=== PATIENT | female | born 1980 | race Caucasian/White ===

== ENCOUNTER 2017-08-08 21:14 | Emergency (ER) | payer OTHER, SELFPAY ==
[2017-08-08 21:22] VITALS: BP 135/99; PULSE 89; RESP 18; TEMP 36.4; O2SAT 100; BMI 34.5
--- NOTE | 2017-08-08 21:31 | ED_ITS ---
HPI - Extremity Problem <Kallie Lainez PA-C - Last Filed: 08/08/17 22:09> General Chief complaint: Skin/Abscess/Foreign Body Stated complaint: Right foot pain Time Seen by Provider: 08/08/17 21:16 Source: patient Mode of arrival: ambulatory Limitations: no limitations History of Present Illness HPI Narrative: This 37-year-old female comes in due to right foot pain and redness. She states that she tends not to heal very well, and somehow got a superficial abrasion last night that she noticed on her toe this morning. She has had redness that spread from the toe up onto the foot since then and is becoming increasingly tender. She denies any fever, drainage, or known injury. She states her tetanus vaccine is up-to-date. She denies any possibility of ( has vasectomy) Related Data Home Medications Medication Instructions Recorded Confirmed paroxetine HCl [Paxil] 40 mg PO QDAY #0 10/04/15 08/08/17 clonazepam [Klonopin] 1 mg PO PRN PRN #0 04/21/17 08/08/17 Previous Rx's Medication Instructions Recorded meclizine 25 mg PO BID PRN #20 tab 04/21/17 doxycycline monohydrate 100 mg PO BID 10 Days #20 cap 08/08/17 Allergies Allergy/AdvReac Type Severity Reaction Status Date / Time Sulfa (Sulfonamide Allergy Intermediate Verified 08/08/17 21:27 Antibiotics) [SULFA (SULFONAMIDE ANTIBIOTICS)] amoxicillin [AMOXICILLIN] Allergy Mild Verified 08/08/17 21:27 Review of Systems <SUMIT Maynard Last Filed: 08/08/17 22:09> Review of Systems All systems reviewed & are unremarkable except as noted in HPI and below Exam <SMUIT Maynard Last Filed: 08/08/17 22:09> Narrative Exam Narrative: GENERAL APPEARANCE: Patient sitting comfortably, in no distress. LUNGS: Clear to auscultation bilaterally. HEART: Rate and rhythm regular without murmur, normal S1 and S2, no S3 or S4. EXTR: No cyanosis or edema DERMATOLOGIC: On the R. great toe dorsum there is a superficial scabbed abrasion with surrounding, mildly warm erythema that extends from the 1st IP joint to the proximal medial 1st and 2nd MT area. Does not extend laterally or to the plantar surface. Tender to touch MS: R. foot and ankle full AROM Initial Vital Signs Initial Vital Signs: Vital Signs Temperature 97.5 F L 08/08/17 21:22 Pulse Rate 89 08/08/17 21:22 Respiratory Rate 18 08/08/17 21:22 Blood Pressure 135/99 H 08/08/17 21:22 Pulse Oximetry 100 08/08/17 21:22 <Shiv Wolfe DO - Last Filed: 08/08/17 22:47> Initial Vital Signs Initial Vital Signs: Vital Signs Temperature 97.5 F L 08/08/17 21:22 Pulse Rate 89 08/08/17 21:22 Respiratory Rate 18 08/08/17 21:22 Blood Pressure 135/99 H 08/08/17 21:22 Pulse Oximetry 100 08/08/17 21:22 Course <Kallie Lainez PA-C - Last Filed: 08/08/17 22:09> Orders Ordered: Discontinued Medications Doxycycline Hyclate (Vibramycin) 100 mg PO NOW ONE Stop: 08/08/17 21:26 Last Admin: 08/08/17 21:32 Dose: 100 mg Ibuprofen (Advil) 800 mg PO NOW ONE Stop: 08/08/17 21:26 Last Admin: 08/08/17 21:32 Dose: 800 mg Vital Signs - 8 hr 08/08/17 21:22 08/08/17 21:57 Temperature 97.5 F L Pulse Rate 89 93 H Respiratory Rate 18 16 Blood Pressure 135/99 H Blood Pressure [Left Arm] 123/86 H Pulse Oximetry 100 96 <Shiv Wolfe DO - Last Filed: 08/08/17 22:47> Orders Ordered: Discontinued Medications Doxycycline Hyclate (Vibramycin) 100 mg PO NOW ONE Stop: 08/08/17 21:26 Last Admin: 08/08/17 21:32 Dose: 100 mg Ibuprofen (Advil) 800 mg PO NOW ONE Stop: 08/08/17 21:26 Last Admin: 08/08/17 21:32 Dose: 800 mg Vital Signs - 8 hr 08/08/17 21:22 08/08/17 21:57 Temperature 97.5 F L Pulse Rate 89 93 H Respiratory Rate 18 16 Blood Pressure 135/99 H Blood Pressure [Left Arm] 123/86 H Pulse Oximetry 100 96 Discharge Plan Departure Patient Disposition: Home, Self-Care Clinical Impression: Cellulitis and abscess of foot Discharge Date/Time: 08/08/17 22:00 Interventions: ED Discharge Assessment Last Done: 08/08/17 22:01 Instructions: DI for Cellulitis -- Adult Activity Restrictions/Additional Instructions: Return as we talked about if you have acutely worsening symptoms over the weekend, otherwise picker / packer your antibiotic tomorrow morning and take the 2nd dose. This has been electronically sent to your pharmacy. Follow up with your PCP in 48-72 hours for recheck Prescriptions: New doxycycline monohydrate 100 mg capsule 100 mg PO BID 10 Days Qty: 20 RF: 0 No Action paroxetine HCl [Paxil] 40 MG tablet 40 mg PO QDAY Qty: 0 RF: 0 clonazepam [Klonopin] 1 mg Tablet 1 mg PO PRN PRN (Reason: Agitation) Qty: 0 RF: 0 meclizine 25 MG tablet 25 mg PO BID PRNQty: 20 RF: 0 Referrals: Fátima Ogden DO [Non-Staff] - <Shiv Wolfe DO - Last Filed: 08/08/17 22:47> Cosign ED Attending Helderature Attestation: I was available for consultation during this ER stay
[2017-08-08] MEDS: DOXYCYCLINE HYCLATE 100 MG TABLET PO (21:32)
[2017-08-08] MEDS: IBUPROFEN 400 MG TABLET 800 MG PO (21:32)
--- NOTE | 2017-08-08 21:37 | PC.NURSE ---
Pt states right foot pain since this am unsure of origin states hx of cellulitis, top of foot appears to be red, swollen and has small abrasion. Pedal pulse present and pt able to bear weight ambulated to er room.
[2017-08-08 21:57] VITALS: BP 123/86; PULSE 93; RESP 16; O2SAT 96
== END 2017-08-08 22:00 | disposition home or self-care (01) ==
PROVIDERS: Emergency Provider Internal Medicine
DX: L03.115 Cellulitis of right lower limb (principal)
CPT/HCPCS: 99282; 99283

== ENCOUNTER 2018-06-05 22:23 | Emergency (ER) | payer OTHER, SELFPAY ==
[2018-06-05 22:30] VITALS: BP 133/94; PULSE 98; RESP 15; TEMP 36.6; O2SAT 100; BMI 32.3
--- NOTE | 2018-06-05 23:15 | DI.US.S_ITS ---
PROCEDURE: US PERIPH VENOUS LOW EXTREM LT INDICATIONS: PAIN, SWELLING TECHNIQUE: Real-time imaging, as well as color and pulse Doppler interrogation, were performed of the lower extremity deep veins from the inguinal ligament to the popliteal fossa. COMPARISON: None. FINDINGS: The common femoral, femoral and popliteal veins are normally compressible, and free of intraluminal thrombus. Color and pulse Doppler demonstrate normal phasic intraluminal flow. There is normal augmentation response to distal compression maneuver. IMPRESSION: No evidence of deep venous thrombosis. Dictated by: Emil Mofrin M.D. on 06/06/2018 at 8:30 Approved by: Emil Morfin M.D. on 06/06/2018 at 8:30
[2018-06-05] MEDS: KETOROLAC 60 MG/2 ML VIAL IM (23:16)
--- NOTE | 2018-06-05 23:24 | ED_ITS ---
HPI - Extremity Problem General Chief complaint: Extremity Problem,Nontraumatic Stated complaint: PELVIS,HIP/PAIN Time Seen by Provider: 06/05/18 22:53 Source: patient Mode of arrival: ambulatory Limitations: no limitations History of Present Illness HPI Narrative: The patient is a 37-year-old female who presents with left inguinal ligament pain. She says it is throbbing often on her last couple days she says it is deep. She rode home from [place] today she feels like it is worse. She has not taken anything for it. She sometimes feels like her leg is cold. She has no calf pain she does get winded while she was going up 5 flights of stairs but not typically or min minimal exertion. She has no chest pain no history of DVT. She denies any back pain. She says actually the pain started behind her knee and now is up on anterior in her groin area. No recent traveling MD Complaint: extremity pain Location: left Quality: burning Radiation: proximal Related Data Home Medications Medication Instructions Recorded Confirmed paroxetine HCl [Paxil] 40 mg PO QDAY #0 10/04/15 08/08/17 clonazepam [Klonopin] 1 mg PO PRN PRN #0 04/21/17 08/08/17 Previous Rx's Medication Instructions Recorded meclizine 25 mg PO BID PRN #20 tab 04/21/17 Allergies Allergy/AdvReac Type Severity Reaction Status Date / Time Sulfa (Sulfonamide Allergy Intermediate Verified 08/08/17 21:27 Antibiotics) [SULFA (SULFONAMIDE ANTIBIOTICS)] amoxicillin [AMOXICILLIN] Allergy Mild Verified 08/08/17 21:27 Review of Systems Review of Systems ROS Unobtainable: All systems reviewed & are unremarkable except as noted in HPI and below Constitutional Denies chills, Denies fever(s), Denies lethargy and Denies weakness Eyes Denies change in vision, Denies eye discharge, Denies irritation and Denies loss of vision ENT Ears, Nose, Mouth, and Throat: Denies change in voice, Denies neck pain and Denies sore throat Cardiovascular Denies chest pain, Denies irregular heart rhythm, Denies lightheadedness, Denies palpitations, Denies dyspnea, Denies dyspnea on exertion and Denies orthopnea Respiratory Denies cough, Denies dyspnea, Denies dyspnea on exertion and Denies wheezing Gastrointestinal Gastrointestinal: Denies abdominal pain, Denies change in bowel habits, Denies diarrhea, Denies nausea and Denies vomiting Genitourinary Denies hematuria, Denies flank pain, Denies urinary incontinence and Denies urinary urgency Musculoskeletal Reports as per HPI and Denies neck pain Integumentary/Breasts Denies pruritus, Denies erythema, Denies rash and Denies wounds Neurologic Denies loss of vision and Denies weakness Endocrine Denies palpitations Allergic/Immunologic Denies wheezing [facility] Medical History (Updated 06/05/18 @ 23:55 by Mahsa Skaggs DO) Anxiety (Chronic) Surgical History (Updated 08/08/17 @ 21:39 by Kallie Lainez PA-C) History of repair of anterior cruciate ligament of right knee (Resolved) Social History Smoking Status: Never smoker Social History Smoking Status: Never smoker Exam Initial Vital Signs Initial Vital Signs: Vital Signs Temperature 98 F 06/05/18 22:30 Pulse Rate 98 H 06/05/18 22:30 Respiratory Rate 15 06/05/18 22:30 Blood Pressure 133/94 H 06/05/18 22:30 Pulse Oximetry 100 06/05/18 22:30 GENERAL: Well-appearing, well-nourished and in no acute distress. HEENT: Head atraumatic,EOMI, pupils reactive, face symmetric CARDIOVASCULAR: Regular rate and rhythm without murmurs, rubs or gallops. RESPIRATORY: Breath sounds equal bilaterally, no wheezes rales or rhonchi. ABDOMEN: Soft, nontender. Normoactive bowel sounds all 4 quadrants. No guarding or rebound. EXTREMITIES: Normal range of motion, no clubbing or edema. Neurovascularly intact Pain over left inguinal ligament. No pain with left hip with internal external rotation. No swelling of the lower leg no calf pain distal pedal pulse and NEUROLOGICAL: Alert and oriented x4.Normal gait and speech. SKIN: Warm, dry, no laceration, no petechiae, no rashes or lesions. Course Orders Ordered: ED Orders 06/05/18 23:15 periph venous low extrem lt Stat Discontinued Medications Ketorolac Tromethamine (Toradol) 60 mg IM NOW ONE Stop: 06/05/18 23:08 Last Admin: 06/05/18 23:16 Dose: 60 mg Vital Signs - 8 hr 06/05/18 22:30 06/06/18 00:05 Temperature 98 F 98.1 F Pulse Rate 98 H 90 Respiratory Rate 15 16 Blood Pressure 133/94 H 127/85 Pulse Oximetry 100 100 MDM - Extremity (Nontraumatic) Lab Data Point of Care Testing Test Results Negative Urine Dip Bedside Urine Glucose Negative Bedside Urine Bilirubin - Negative Bedside Urine Ketone - Negative Urine Specific [place] 1.020 Bedside Urine Occult Blood +/- Bedside Urine pH 6.0 Bedside Urine Protein - Negative Bedside Urine Urobilinogen - Negative Bedside Urine Nitrite - Negative Bedside Urine Leukocytes - Negative Esterase Imaging Data Venous US: Radiologist's impression: weight shifter report: Negative for DVT MDM Narrative Medical decision making narrative: Patient's pain started behind her knee and now she is having pain up in her upper thigh. Possible DVT. Ultrasound is negative. Patient really does seem to have pain and inflammation over inguinal ligament she has no flank pain. She does have a small amount of blood in her urine we discussed possible kidney stone however at this time she will likely pass it there is no infection. Commended ibuprofen around the clock for the next couple of days. She overall is feeling little bit better after Toradol. Discharge Plan Departure Patient Disposition: Home Clinical Impression: Ligamentous inflammation Discharge Date/Time: 06/06/18 00:05 Interventions: ED Discharge Assessment Last Done: 06/06/18 00:05 Instructions: DI for Ligament Sprains Activity Restrictions/Additional Instructions: *You have been diagnosed with possible left inguinal ligament sprain versus possible kidney stone. *What to do: He did have some small amount of blood in her urine which may indicate a kidney stone. However at this time I suspect that the inguinal ligament is inflamed. *Continue to take medications as directed Ibuprofen 800 mg every 8 hours as for 1 week with food to help with inflammation *Follow up with your primary care provider in 2-3 days *Return to ER if you should have increasing pain, fever or any new, worsening or concerning symptoms Prescriptions: No Action paroxetine HCl [Paxil] 40 MG tablet 40 mg PO QDAY Qty: 0 RF: 0 clonazepam [Klonopin] 1 mg Tablet 1 mg PO PRN PRN (Reason: Agitation) Qty: 0 RF: 0 meclizine 25 MG tablet 25 mg PO BID PRNQty: 20 RF: 0 Referrals: Fátima Ogden DO [Primary Care Provider] -
[2018-06-06 00:05] VITALS: BP 127/85; PULSE 90; RESP 16; TEMP 36.7; O2SAT 100
== END 2018-06-06 00:05 | disposition home or self-care (01) ==
PROVIDERS: Emergency Provider Emergency Medicine; PCP Family Medicine
DX: M24.20 Disorder of ligament, unspecified site (principal); M79.652 Pain in left thigh; M25.562 Pain in left knee
CPT/HCPCS: 81003; 81025; 93971; 96372; 99282; 99283; J1885

== ENCOUNTER 2019-02-09 08:09 | Emergency (ER) | payer OTHER, SELFPAY ==
[2019-02-09 08:16] VITALS: BP 136/92; PULSE 80; RESP 15; TEMP 36.8; O2SAT 99; BMI 32.3
--- NOTE | 2019-02-09 08:27 | ED.EXTPRO ---
HPI - Extremity Problem General Chief complaint: Extremity Problem,Nontraumatic Stated complaint: right arm elbown down numb and tingle,headache Time Seen by Provider: 02/09/19 08:15 Source: patient Mode of arrival: Ambulatory History of Present Illness HPI Narrative: Patient is a 38-year-old female who presents with right arm numbness from her elbow to her fingertips. It's been ongoing for last 2 days. She is right-hand dominant she denies any repetitive activity although she has been caring lifting a heavy bag. She hasn't had any fever chills headache or neck pain. She has no weakness in her hand. No elbow pain. Related Data Home Medications Medication Instructions Recorded Confirmed paroxetine HCl [Paxil] 40 mg PO QDAY #0 10/04/15 08/08/17 clonazepam [Klonopin] 1 mg PO PRN PRN #0 04/21/17 08/08/17 Previous Rx's Medication Instructions Recorded meclizine 25 mg PO BID PRN #20 tab 04/21/17 prednisone 20 mg PO DAILY #5 tab 02/09/19 Allergies Allergy/AdvReac Type Severity Reaction Status Date / Time Sulfa (Sulfonamide Allergy Intermediate Verified 02/09/19 08:16 Antibiotics) [SULFA (SULFONAMIDE ANTIBIOTICS)] amoxicillin [AMOXICILLIN] Allergy Mild Verified 02/09/19 08:16 Review of Systems Review of Systems Narrative: GENERAL: Denies chills, fatigue, malaise, fever, sweats, travel HEENT: Denies sinus pain, ear pain, sore throat, difficulty swallowing, neck pain RESPIRATORY: Denies dyspnea, cough, wheezing, hemoptysis, sputum. CARDIOVASCULAR: Denies chest pain, palpitations, orthopnea, edema GASTROINTESTINAL: Denies nausea, vomiting, abdominal pain, diarrhea, constipation, melena. : Denies dysuria, frequency, incontinence, hematuria, urinary retention, flank pain. MUSCULOSKELETAL: Denies weakness, joint pain, or bony pain SKIN: No rash, no erythema, no pruritus NEUROLOGIC: See HPI PSYCHIATRIC: No concerning psychosocial issues. 12 point review of systems is negative except for those stated above and HPI Patient History Medical History Anxiety (Chronic) Surgical History History of repair of anterior cruciate ligament of right knee (Resolved) Social History Smoking Status: Never smoker Smoking Status: Never smoker alcohol intake frequency: holidays/special occasions only Substance Use Type: does not use Exam Initial Vital Signs Initial Vital Signs: Vital Signs Temperature 98.3 F 02/09/19 08:16 Pulse Rate 80 02/09/19 08:16 Respiratory Rate 15 02/09/19 08:16 Blood Pressure 136/92 H 02/09/19 08:16 Pulse Oximetry 99 02/09/19 08:16 GENERAL: Well-appearing, well-nourished and in no acute distress. CARDIOVASCULAR: peripheral pulses in tact, cap refill <2 sec RESPIRATORY: No respiratory distress, speaks in full sentences without difficulty EXTREMITIES: Normal range of motion, no clubbing or edema. Neurovascularly intact Fourth Hand strength equal bilateral. Peripheral pulses intact. Slight decreased sensation on right forearm sensation over bilateral deltoids are equal and intact. Good strength with supination and pronation with right arm. NEUROLOGICAL: Cranial nerves II through XII grossly intact. Normal gait and speech. SKIN: Warm, dry, no petechiae, no rashes or lesions. Course Vital Signs Vital signs: Vital Signs - 8 hr 02/09/19 08:16 02/09/19 09:03 Temperature 98.3 F Pulse Rate 80 73 Respiratory Rate 15 16 Blood Pressure 136/92 H 107/75 Pulse Oximetry 99 97 MDM - Extremity (Nontraumatic) MDM Narrative Medical decision making narrative: Patient has no weakness no other focal deficits some mild numbness from elbow down and not consistent with CVA. Likely peripheral neuropathy recommend follow-up with PCP. Discharge Plan Departure Patient Disposition: Home Clinical Impression: Peripheral neuropathy Qualifiers: Peripheral neuropathy type: polyneuropathy, unspecified Qualified Code(s): G62.9 - Polyneuropathy, unspecified Discharge Date/Time: 02/09/19 09:04 Instructions: DI for Peripheral Neuropathy Activity Restrictions/Additional Instructions: *You have been diagnosed with peripheral neuropathy *What to do: At this time you have likely nerve inflammation causing some numbness. You may require further testing as an outpatient with her PCP. *Continue to take medications as directed Prednisone 20 mg once a day for 5 days--> SENT TO [facility] IN [place] *Follow up with your primary care provider in 2-3 days *Return to ER if you should have increasing weakness, numbness tingling or any new, worsening or concerning symptoms Prescriptions: New prednisone 20 mg tablet 20 mg PO DAILY Qty: 5 RF: 0 No Action paroxetine HCl [Paxil] 40 MG tablet 40 mg PO QDAY Qty: 0 RF: 0 clonazepam [Klonopin] 1 mg Tablet 1 mg PO PRN PRN (Reason: Agitation) Qty: 0 RF: 0 meclizine 25 MG tablet 25 mg PO BID PRNQty: 20 RF: 0 Referrals: Fátima Ogden DO [Primary Care Provider] -
[2019-02-09 09:03] VITALS: BP 107/75; PULSE 73; RESP 16; O2SAT 97
== END 2019-02-09 09:04 | disposition home or self-care (01) ==
PROVIDERS: Emergency Provider Emergency Medicine; PCP Family Medicine
DX: G62.9 Polyneuropathy, unspecified (principal)
CPT/HCPCS: 99283

== ENCOUNTER 2019-02-23 07:48 | Emergency (ER) | payer OTHER, SELFPAY ==
[2019-02-23 07:57] VITALS: BP 134/94; PULSE 96; RESP 18; TEMP 37.1; O2SAT 100; BMI 32.3
--- NOTE | 2019-02-23 08:19 | ED_ITS ---
HPI - URI/Sore Throat General Chief Complaint: Upper Respiratory Symptoms Stated Complaint: body aches,fever,sinus ache Time Seen by Provider: 02/23/19 07:58 Source: patient Mode of arrival: Ambulatory Limitations: no limitations History of Present Illness HPI Narrative: Patient comes emergency department complaining of fever, intermittent sore throat, right ear pain, and right maxillary pain for the last several days. Patient states her temperature at home was up to 103 and that she was having fevers for the last 2 days. She states she does not currently fever. Patient states her last use of ibuprofen was yesterday. She has not had any Tylenol this morning. Patient states that she has not had any nausea or vomiting. She states that she does have pain in her abdomen which feels like a soreness. She denies any diarrhea. She states she has a history of recurrent otitis media and has tympanostomy tubes in her ears. She states she is otherwise fairly healthy. No known sick contacts. No other complaints at this time. Related Data Home Medications Medication Instructions Recorded Confirmed paroxetine HCl [Paxil] 40 mg PO QDAY #0 10/04/15 08/08/17 clonazepam [Klonopin] 1 mg PO PRN PRN #0 04/21/17 08/08/17 Previous Rx's Medication Instructions Recorded meclizine 25 mg PO BID PRN #20 tab 04/21/17 prednisone 20 mg PO DAILY #5 tab 02/09/19 doxycycline hyclate 100 mg PO BID #14 cap 02/23/19 Allergies Allergy/AdvReac Type Severity Reaction Status Date / Time Sulfa (Sulfonamide Allergy Intermediate Verified 02/09/19 08:16 Antibiotics) [SULFA (SULFONAMIDE ANTIBIOTICS)] amoxicillin [AMOXICILLIN] Allergy Mild Verified 02/09/19 08:16 Review of Systems Constitutional Constitutional: Denies chills, Denies fatigue, Denies fever(s), Denies frequent falls, Denies lethargy and Denies weakness Eyes Eyes: Denies change in vision, Denies eye discharge, Denies irritation and D enies loss of vision ENT Ears, Nose, Mouth, and Throat: Denies change in voice, Denies dizziness, Denies neck pain, Reports sore throat and Denies throat swelling Comments: Sinus pain, ear pain Cardiovascular Cardiovascular: Denies chest pain, Denies irregular heart rhythm, Denies lightheadedness, Denies palpitations, Denies dyspnea, Denies dyspnea on exertion and Denies orthopnea Respiratory Respiratory: Reports cough, Denies dyspnea, Denies dyspnea on exertion and Denies wheezing Gastrointestinal Gastrointestinal: Reports abdominal pain, Denies change in bowel habits, Denies diarrhea, Denies nausea and Denies vomiting Genitourinary Genitourinary: Denies hematuria, Denies flank pain, Denies urinary incontinence and Denies urinary urgency Musculoskeletal Musculoskeletal: Denies back pain, Denies muscle weakness, Denies neck pain, Denies numbness and Denies tingling Integumentary/Breasts Skin/Breast: Denies pruritus, Denies erythema, Denies rash and Denies wounds Neurologic Neurologic: Denies behavioral changes, Denies confusion, Denies dizziness, Denies frequent falls, Denies loss of vision, Denies numbness, Denies tingling and Denies weakness Psychiatric Psychiatric: Denies anxiety, Denies behavioral changes, Denies confusion, Denies depression, Denies homicidal ideation and Denies suicidal ideation Endocrine Endocrine: Denies fatigue, Denies flushing and Denies palpitations Hematologic/Lymphatic Hematologic/Lymphatic: Denies easy bruising Allergic/Immunologic Allergic/Immunologic: Denies urticaria, Denies throat swelling and Denies wheezing Patient History Medical History Anxiety (Chronic) Surgical History History of repair of anterior cruciate ligament of right knee (Resolved) Social History Smoking Status: Never smoker Smoking Status: Never smoker alcohol intake frequency: holidays/special occasions only Substance Use Type: does not use Exam Initial Vital Signs Initial Vital Signs: Vital Signs Temperature 98.8 F 02/23/19 07:57 Pulse Rate 96 H 02/23/19 07:57 Respiratory Rate 18 02/23/19 07:57 Blood Pressure 134/94 H 02/23/19 07:57 Pulse Oximetry 100 02/23/19 07:57 Const General: cooperative and well developed Nutritional Appearance: well nourished Orientation: alert, awake, oriented x3 and not confused HENMT Head: normocephalic and atraumatic Ears: external ears normal and TM's normal bilaterally (Tympanostomy tube in place on the right) Nose: external nose normal and No nasal discharge Face and sinus: sinuses nontender, face symmetric, sinus tenderness (Mild, right) maxillary and No dry mucous membranes Mouth: oral mucosae normal and moist mucous membranes Teeth and gingiva: dentition normal Throat: tonsils normal and uvula midline Eyes General: appearance normal, both eyes and all related structures Eyelids: eyelids normal Conjunctivae: conjunctivae normal Sclera: sclerae normal Pupils: PERRL EOM: EOM intact bilaterally Neck Neck: normal visual inspection, trachea midline, No lymphadenopathy, No midline deformity and No JVD Lymphatic: No lymphedema Chest Chest: normal inspection of the chest Resp Effort & Inspection: normal respiratory effort, able to speak in complete sentences, no respiratory distress and no use of accessory muscles Auscultation: clear to auscultation bilaterally, no rales, no rhonchi and no wheezes Cardio Rate: regular rate Rhythm: regular rhythm Heart Sounds: no click, no gallops, no murmurs and no rubs Pulses: normal peripheral pulses GI Inspection: non-distended Palpation: soft, no hepatosplenomegaly, No guarding, No pulsatile mass and No tender Back/Spine/Pelvis Back: No CVA tenderness Cervical Spine: cervical ROM normal and No pain with cervical ROM Thoracic/Lumbar Spine: thoracic and lumbar spine normal to inspection Skin General: no rashes or lesions noted, No jaundice and No petechiae Neuro General: alert, oriented x3, gait normal and no focal motor deficits Speech: speech normal Extrem General: full ROM, no clubbing, cyanosis or edema, no pedal edema and no calf tenderness Psych Appearance: well kempt Mental Status: mental status grossly normal Attitude: cooperative Thought Content: normal and suicidality Judgment: judgment good Course Course Course Narrative: Patient was worked up with strep and influenza tests, and t reated symptomatically with IV fluids, Toradol, and steroids. Patient's workup was found to be negative. I discussed with her that she most likely has 1 of the many viral illnesses that are going around at this time, and that this will be self-limited. We've discussed home management of the symptoms, as well as the usual indications for return. Orders Ordered: Discontinued Medications Dexamethasone (Decadron) 10 mg IV NOW ONE Stop: 02/23/19 08:19 Last Admin: 02/23/19 08:50 Dose: 10 mg Documented by: SENG Doxycycline Hyclate (Vibramycin) 100 mg PO NOW ONE Stop: 02/23/19 09:30 Last Admin: 02/23/19 09:42 Dose: 100 mg Documented by: SENG Sodium Chloride (Normal Saline 0.9%) 1,000 mls @ 1,000 mls/hr IV BOLUS ONE Stop: 02/23/19 09:17 Last Infusion: 02/23/19 10:16 Dose: 0 mls/hr Documented by: Admin: 02/23/19 08:50 Dose: 1,000 mls/hr Documented by: SENG Ketorolac Tromethamine (Toradol) 30 mg IV NOW ONE Stop: 02/23/19 08:19 Last Admin: 02/23/19 08:50 Dose: 30 mg Documented by: SENG Vital Signs Vital signs: Vital Signs - 8 hr 02/23/19 07:57 Temperature 98.8 F Pulse Rate 96 H Respiratory Rate 18 Blood Pressure 134/94 H Pulse Oximetry 100 MDM - URI/Sore Throat Medical Records Attestation: I reviewed the patient's medical records. Lab Data Attestation: I reviewed the patient's lab results. Labs: Lab Results 02/23/19 02/23/19 Range/Units 08:30 08:45 Influenza A (RT-PCR) Flu a negative (NEGATIVE) Influenza B (RT-PCR) Flu b negative (NEGATIVE) Group A Strep (PCR) Negative Discharge Plan Departure Patient Disposition: Home Clinical Impression: Sinusitis Qualifiers: Sinusitis location: maxillary Chronicity: acute Recurrence: non-recurrent Qualified Code(s): J01.00 - Acute maxillary sinusitis, unspecified Upper respiratory infection Qualifiers: URI type: unspecified viral URI Qualified Code(s): J06.9 - Acute upper respiratory infection, unspecified Acute otalgia Qualifiers: Laterality: right Qualified Code(s): H92.01 - Otalgia, right ear Discharge Date/Time: 02/23/19 10:17 Instructions: DI for Sinusitis, DI for Viral Upper Respiratory Infection -- Adult, DI for Ear Pain-Adult Activity Restrictions/Additional Instructions: Your influenza and strep tests are negative. Most likely, you have one of the many viruses that go around this time of year, as well as a sinus infection, considering your sinus pain and fever. You may take Tylenol and ibuprofen, as needed for pain and fever. You have been started on antibiotics here in the emergency department for her sinus. Please take the antibiotics at home, as directed, until the course is complete. Prescriptions: New doxycycline hyclate 100 mg capsule 100 mg PO BID Qty: 14 RF: 0 No Action paroxetine HCl [Paxil] 40 MG tablet 40 mg PO QDAY Qty: 0 RF: 0 clonazepam [Klonopin] 1 mg Tablet 1 mg PO PRN PRN (Reason: Agitation) Qty: 0 RF: 0 meclizine 25 MG tablet 25 mg PO BID PRNQty: 20 RF: 0 prednisone 20 mg tablet 20 mg PO DAILY Qty: 5 RF: 0 Referrals: Fátima Ogden DO [Primary Care Provider] -
[2019-02-23] MEDS: SODIUM CHLORIDE 0.9% 1,000 ML 1000 ML IV (08:50)
[2019-02-23] MEDS: KETOROLAC 60 MG/2 ML VIAL 30 MG IV (08:50)
[2019-02-23] MEDS: DEXAMETHASONE 10 MG/ML VIAL IV (08:50)
[2019-02-23 09:11] LABS: Strep Grp A by PCR Rapid Negative
[2019-02-23 09:13] LABS: Influenza A - CEPHEID Flu A NEGATIVE (NEGATIVE); Influenza B - CEPHEID Flu B NEGATIVE (NEGATIVE)
[2019-02-23] MEDS: DOXYCYCLINE HYCLATE 100 MG TABLET PO (09:42)
[2019-02-23 10:17] VITALS: BP 116/87; PULSE 86; RESP 16; TEMP 37.1; O2SAT 100
== END 2019-02-23 10:17 | disposition home or self-care (01) ==
PROVIDERS: Emergency Provider Emergency Medicine; PCP Family Medicine
DX: J01.00 Acute maxillary sinusitis, unspecified (principal); J06.9 Acute upper respiratory infection, unspecified; H92.01 Otalgia, right ear
CPT/HCPCS: 87502; 87651; 96361; 96374; 96375; 99283; 99284; J1100; J1885

== ENCOUNTER → 2019-12-21 17:03 | Outpatient (CLI) | payer OTHER, SELFPAY ==
--- NOTE | 2019-12-21 | DI.MG.S_ITS ---
BILATERAL DIGITAL SCREENING MAMMOGRAM 3D/2D WITH CAD: 12/21/2019 CLINICAL: Routine screening. Baseline exam. No prior exams were available for comparison. There are scattered fibroglandular elements in both breasts. Current study was also evaluated with a Computer Aided Detection (CAD) system. There is an oval equal density focal asymmetry with an indistinct margin in the left breast at 2 o'clock posterior depth. No other significant masses, calcifications, or other findings are seen in either breast. IMPRESSION: INCOMPLETE: NEEDS ADDITIONAL IMAGING EVALUATION The oval equal density focal asymmetry in the left breast is indeterminate. Mediolateral and spot compression views as well as additional views with possible ultrasound are recommended. This exam was interpreted at Station ID: [id number]. NOTE: For mammograms, a report in lay terms will be sent to the patient. Approximately 15% of breast malignancies will not be visualized mammographically. In the management of a palpable breast mass, a negative mammogram must not discourage biopsy of a clinically suspicious lesion. Electronically Signed By: Dell sharma/tyrell:12/22/2019 08:07:42 letter sent: Additional Imaging Needed ACR BI-RADS Category 0: Incomplete [id number]
== END ==
PROVIDERS: PCP Family Medicine; Referring Provider Family Medicine; Visit Provider Family Medicine
DX: Z12.31 Encounter for screening mammogram for malignant neoplasm of breast (principal)
CPT/HCPCS: 77063; 77067

== ENCOUNTER → 2020-01-14 12:50 | Outpatient (CLI) | payer OTHER, SELFPAY ==
--- NOTE | 2020-01-14 | DI.MG.S_ITS ---
UNILATERAL LEFT DIGITAL DIAGNOSTIC MAMMOGRAM 3D/2D WITH ADDITIONAL VIEWS: 01/14/2020 CLINICAL: Additional evaluation requested from prior study. [facility] There are scattered fibroglandular elements in left breast. There is a focal asymmetry in the left breast at 2 o'clock posterior depth. No other significant masses or calcifications are seen in the breast. IMPRESSION: INCOMPLETE: NEEDS ADDITIONAL IMAGING EVALUATION The focal asymmetry in the left breast likely represents fibroglandular tissue but is indeterminate. A targeted ultrasound of the left breast is recommended and will be performed immediately following this exam. This exam was interpreted at Station ID: [id number]. NOTE: For mammograms, a report in lay terms will be sent to the patient. Approximately 15% of breast malignancies will not be visualized mammographically. In the management of a palpable breast mass, a negative mammogram must not discourage biopsy of a clinically suspicious lesion. Electronically Signed By: Rylee Bobo M.D. lk/:01/14/2020 13:13:57 ACR BI-RADS Category 0: Incomplete [id number]
--- NOTE | 2020-01-14 | DI.US.S_ITS ---
ULTRASOUND OF LEFT BREAST: 01/14/2020 CLINICAL: Patient returns today to evaluate a focal asymmetry in the left breast. Comparison is made to exams dated: 01/14/2020 mammogram and 12/21/2019 mammogram - [facility]. Ultrasound of the left breast was performed on the area of interest. Dhaliwal scale images of the real-time examination were reviewed. There are multiple scattered simple cysts in the left breast superior lateral quadrant middle depth. Some of these cysts demonstrate internal avascular septations. No suspicious sonographic findings. IMPRESSION: BENIGN There is no sonographic evidence of malignancy. The multiple simple cysts in the left breast are benign. A 1 year screening mammogram is recommended. This exam was interpreted at Station ID: [id number]. Electronically Signed By: Rylee banuelos/:01/14/2020 14:12:46 letter sent: Normal Exam Ultrasound BI-RADS: 2 Benign
== END ==
PROVIDERS: PCP Family Medicine; Referring Provider Family Medicine; Visit Provider Family Medicine
DX: R92.8 Other abnormal and inconclusive findings on diagnostic imaging of breast (principal)
CPT/HCPCS: 76642; 77065; G0279

== ENCOUNTER 2020-08-04 08:31 | Emergency (ER) | payer OTHER, SELFPAY ==
--- NOTE | 2020-08-04 08:37 | ED_ITS ---
HPI - General Adult General Chief complaint: Anxiety Stated complaint: panic attack/chest pain/clamy Time Seen by Provider: 08/04/20 08:32 Source: patient Mode of arrival: Ambulatory Limitations: no limitations History of Present Illness HPI narrative: Patient is a 40-year-old female. She does have a history of anxiety and panic attacks. She states that last evening she was driving and had an onset of what she thought was a panic attack. She is unsure exactly what caused the symptoms. Her symptoms continue this morning. She did take a Klonopin without much improvement. She also woke up this morning feeling very clammy. Has a dry mouth. Also having some chest discomfort. Related Data Home Medications Medication Instructions Recorded Confirmed paroxetine HCl [Paxil] 40 mg PO QDAY #0 10/04/15 08/08/17 clonazepam [Klonopin] 1 mg PO PRN PRN #0 04/21/17 08/08/17 Previous Rx's Medication Instructions Recorded meclizine 25 mg PO BID PRN #20 tab 04/21/17 prednisone 20 mg PO DAILY #5 tab 02/09/19 doxycycline hyclate 100 mg PO BID #14 cap 02/23/19 Allergies Allergy/AdvReac Type Severity Reaction Status Date / Time Sulfa (Sulfonamide Allergy Intermediate Verified 02/09/19 08:16 Antibiotics) [SULFA (SULFONAMIDE ANTIBIOTICS)] amoxicillin [AMOXICILLIN] Allergy Mild Verified 02/09/19 08:16 Review of Systems Constitutional Constitutional: Reports system reviewed and no additional complaints, except as documented Cardiovascular Cardiovascular: Reports chest pain Respiratory Respiratory: Reports system reviewed and no additional complaints, except as documented Gastrointestinal Gastrointestinal: Reports system reviewed and no additional complaints, except as documented Integumentary/Breasts Skin/Breast: Reports system reviewed and no additional complaints, except as documented Neurologic Neurologic: Reports system reviewed and no additional complaints, except as documented Psychiatric Psychiatric: Reports anxiety Allergic/Immunologic Allergic/Immunologic: Reports system reviewed and no additional complaints, e xcept as documented Patient History Medical History Anxiety Surgical History History of repair of anterior cruciate ligament of right knee Social History Smoking Status: Never smoker Smoking Status: Never smoker alcohol intake frequency: holidays/special occasions only Substance Use Type: does not use Exam Initial Vital Signs Initial Vital Signs: Vital Signs Temperature 98.6 F 08/04/20 08:41 Pulse Rate 92 H 08/04/20 08:41 Respiratory Rate 22 08/04/20 08:41 Blood Pressure 134/92 H 08/04/20 08:41 Pulse Oximetry 97 08/04/20 08:41 Const General: cooperative and comfortable Limitations: mental status not altered HENMT Head: normal to inspection and normocephalic Resp Effort & Inspection: normal respiratory effort Auscultation: clear to auscultation bilaterally Cardio Rate: regular rate Rhythm: regular rhythm GI Inspection: normal to inspection Skin Lesions: no lesions Rashes: no rashes Neuro General: patient alert and patient awake Cognition: normal cognition Extrem General: normal to inspection Psych Speech and Movement: restless Mood: anxious mood Course Orders Ordered: ED Orders 08/04/20 08:32 EKG-12 Lead Stat Discontinued Medications Lorazepam (Lorazepam 0.5 Mg Tablet) 1 mg PO NOW ONE Stop: 08/04/20 08:37 Last Admin: 08/04/20 08:43 Dose: 1 mg Documented by: DORIE Vital Signs Vital signs: Vital Signs - 8 hr 08/04/20 08:41 Temperature 98.6 F Pulse Rate 92 H Respiratory Rate 22 Blood Pressure 134/92 H Pulse Oximetry 97 Medical Decision Making ECG Data Attestation: I personally reviewed and interpreted this ECG as follows: Prior ECG tracings: not available for review Interpretation: Sinus rhythm Ventricular rate 81 otherwise unremarkable EKG [facility] Narrative Medical decision making narrative: Patient's EKG is unremarkable. She feels better after the Ativan. Her symptoms are very consistent with an anxiety/panic attack given her presentation and her history. She has Klonopin at home that she can take as needed. Patient is safe for discharge home. Discharge Plan Departure Patient Disposition: Home Clinical Impression: Panic attack Instructions: Anxiety and Panic Attacks (Alternative Therapy) Activity Restrictions/Additional Instructions: I do recommend that you continue to take all of your medications as directed. Contact your primary provider for follow-up. Return to the emergency department for any new or worsening symptoms Prescriptions: No Action paroxetine HCl [Paxil] 40 MG tablet 40 mg PO QDAY Qty: 0 RF: 0 clonazepam [Klonopin] 1 mg Tablet 1 mg PO PRN PRN (Reason: Agitation) Qty: 0 RF: 0 meclizine 25 MG tablet 25 mg PO BID PRNQty: 20 RF: 0 doxycycline hyclate 100 mg capsule 100 mg PO BID Qty: 14 RF: 0 prednisone 20 mg tablet 20 mg PO DAILY Qty: 5 RF: 0 Referrals: Fátima Ogden DO [Primary Care Provider] -
[2020-08-04 08:41] VITALS: BP 134/92; PULSE 92; RESP 22; TEMP 37; O2SAT 97; BMI 36.7
[2020-08-04] MEDS: LORazepam 0.5 MG TABLET 1 MG PO (08:43)
--- NOTE | 2020-08-04 09:42 | PC.NURSE ---
Patient reports chest pain has gone away since the medication, however she is still shaky with a visible tremor and reports light-headedness. She denies having eaten anything today. I encouraged her to drink water and brought her food to eat.
--- NOTE | 2020-08-04 09:44 | PC.NURSE ---
reports light-headedness and is shaky
[2020-08-04 10:29] VITALS: BP 128/76; PULSE 87; RESP 17; O2SAT 99
== END 2020-08-04 10:29 | disposition home or self-care (01) ==
PROVIDERS: Emergency Provider Emergency Medicine; PCP Family Medicine
DX: F41.0 Panic disorder [episodic paroxysmal anxiety] (principal); R07.9 Chest pain, unspecified
CPT/HCPCS: 93005; 99283

== ENCOUNTER → 2020-11-22 10:46 | Outpatient (CLI) | payer OTHER, SELFPAY ==
--- NOTE | 2020-11-22 | DI.MRI.S_ITS ---
PROCEDURE: MR BRAIN (IAC) WWO CON INDICATIONS: Sensorineural hearing loss, unilateral, right ear, TECHNIQUE: Noncontrast sagittal T1 spin echo, axial FLAIR, axial gradient echo, axial diffusion and ADC through the brain. Axial thin-slice 3D CISS, coronal TruFISP, axial T1 spin echo with fat saturation through the internal auditory canals. After the administration of contrast, thin slice axial and coronal T1 spin echo with fat saturation through the internal auditory canals, and axial T1 spin echo with fat saturation through the brain. COMPARISON: None. FINDINGS: Image quality: Excellent. Cerebellopontine angles: No cerebellopontine angle masses. Inner ear structures appear normally formed. No suspicious enhancement in the internal auditory canal or along the course of the 7th cranial nerve. CSF spaces: Ventricles are normal in size and shape. No extra-axial fluid collections. Basal cisterns are patent. Brain: No intracranial bleeds or mass effects. Dhaliwal-white matter interface is intact. No abnormal intracranial enhancement. Diffusion weighted images demonstrate no acute ischemic insults. Brainstem appears normal. Normal intravascular flow voids are present. Skull and face: Calvarial marrow signal is normal. Orbits appear normal. Sinuses: Sinuses and mastoids are clear. IMPRESSION: No mass or other abnormality to explain hearing loss. Dictated by: Bautista Aguilera M.D. on 11/22/2020 at 12:51 Approved by: Bautista Aguilera M.D. on 11/22/2020 at 12:54
== END ==
PROVIDERS: PCP Family Medicine; Referring Provider Otolaryngology; Visit Provider Otolaryngology
DX: H90.41 Sensorineural hearing loss, unilateral, right ear, with unrestricted hearing on the contralateral side (principal)
CPT/HCPCS: 70553

== ENCOUNTER → 2021-02-22 14:05 | Outpatient (CLI) | payer OTHER, SELFPAY ==
--- NOTE | 2021-02-22 14:05 | DI.MG.S_ITS ---
BILATERAL DIGITAL SCREENING MAMMOGRAM 3D/2D WITH CAD: 02/22/2021 CLINICAL: Routine screening. Comparison is made to exam dated: 12/21/2019 [facility]. There are scattered fibroglandular elements in both breasts. Current study was also evaluated with a Computer Aided Detection (CAD) system. No significant masses, calcifications, or other findings are seen in either breast. There has been no significant interval change. IMPRESSION: NEGATIVE There is no mammographic evidence of malignancy. A 1 year screening mammogram is recommended. This exam was interpreted at Station ID: [id number]. NOTE: For mammograms, a report in lay terms will be sent to the patient. Approximately 15% of breast malignancies will not be visualized mammographically. In the management of a palpable breast mass, a negative mammogram must not discourage biopsy of a clinically suspicious lesion. Electronically Signed By: Bautista Aguilera M.D., jr/tyrell:02/22/2021 15:05:41 letter sent: Normal Exam ACR BI-RADS Category 1: Negative 3341F
== END ==
PROVIDERS: PCP Family Medicine; Referring Provider Family Medicine; Visit Provider Family Medicine
DX: Z12.31 Encounter for screening mammogram for malignant neoplasm of breast (principal)
CPT/HCPCS: 77063; 77067

== ENCOUNTER → 2022-02-27 10:19 | Outpatient (CLI) | payer OTHER, SELFPAY ==
--- NOTE | 2022-02-27 | DI.MG.S_ITS ---
BILATERAL DIGITAL SCREENING MAMMOGRAM 3D/2D WITH CAD: 02/27/2022 CLINICAL: Routine screening. Comparison is made to exams dated: 02/22/2021 mammogram, 01/14/2020 ultrasound, 01/14/2020 mammogram, and 12/21/2019 mammogram - [facility]. There are scattered areas of fibroglandular density in both breasts (category b / 25%-50% glandular tissue). Current study was also evaluated with a Computer Aided Detection (CAD) system. No significant masses, calcifications, or other findings are seen in either breast. There has been no significant interval change. IMPRESSION: NEGATIVE There is no mammographic evidence of malignancy. A 1 year screening mammogram is recommended. Based on the Tyrer Cuzick model (a risk assessment model) the patient's lifetime risk is 11.6% and her 10 year risk is 1.7%. According to the ACR, ACS, and NCCN guidelines, an annual breast MRI exam along with mammogram is recommended if the patient's lifetime risk is 20% or greater. This exam was interpreted at Station ID: [id number]. NOTE: For mammograms, a report in lay terms will be sent to the patient. Approximately 15% of breast malignancies will not be visualized mammographically. In the management of a palpable breast mass, a negative mammogram must not discourage biopsy of a clinically suspicious lesion. Electronically Signed By: Bautista Aguilera M.D., jr/tyrell:02/27/2022 13:08:06 letter sent: Normal Exam ACR BI-RADS Category 1: Negative [id number]
== END ==
PROVIDERS: PCP Family Medicine; Referring Provider Family Medicine; Visit Provider Family Medicine
DX: Z12.31 Encounter for screening mammogram for malignant neoplasm of breast (principal)
CPT/HCPCS: 77063; 77067

== ENCOUNTER 2023-02-10 12:04 | Emergency (ER) | payer OTHER, SELFPAY ==
[2023-02-10] VITALS (7 sets, daily range): BP systolic 118–127; BP diastolic 75–89; PULSE 77–87; RESP 12–24; TEMP 37.7; O2SAT 98–100; BMI 35.2
[2023-02-10] MEDS: SODIUM CHLORIDE 0.9% 1,000 ML 1000 ML IV (14:33)
[2023-02-10 14:42] LABS: Add Manual Diff / Slide Review NO; Basophils Absolute Auto 100 /uL (0-100); Basophils Percent Auto 0.8 % (0-2); Eosinophils Absolute Auto 200 /uL (0-450); Eosinophils Percent Auto 2.3 % (2-4); Hematocrit 38.2 % (36-46); Hemoglobin 13.4 g/dL (12.0-16.0); Lymphocytes Absolute Auto 1600 /uL (1100-4500); Mean Corpuscular Hemoglobin 31.2 PG (26-34); Mean Corpuscular Volume 89.3 fL (80-100); Monocytes Absolute Auto 500 /uL (0-900); Monocytes Percent Auto 5.7 % (3-14); Neutrophils Absolute Auto 5900 /uL (1500-7000); Neutrophils Percent Auto 72.2 % (50-75); Platelet Count 277 X10^3/uL (150-400); Red Blood Cell Count 4.28 X10^6/uL (4.0-5.2); Red Cell Distribution Width 13.9 % (11.6-14.8); White Blood Cell Count 8.2 X10^3/uL (4.5-11.0)
[2023-02-10 14:56] LABS: Alanine Aminotransferase 26 IU/L (<35); Albumin 4.1 g/dL (3.5-5.0); Albumin Globulin Ratio 1.4 (1.0-2.8); Alkaline Phosphatase 77 U/L (38-126); Aspartate Aminotransferase 26 IU/L (14-36); BUN Creatinine Ratio 16.7 (6-22); Bilirubin Total 0.4 mg/dL (0.2-1.3); Blood Urea Nitrogen 10 mg/dL (7-17); Calcium 9.3 mg/dL (8.4-10.2); Carbon Dioxide 26 mmol/L (22-32); Chloride 105 mmol/L (98-107); Estimated Glomerular Filt Rate > 60 mL/min (>60); Globulin 2.9 g/dL (1.7-4.1); Glucose 91 mg/dL (70-100); HEMOLYSIS < 15 (0-50); Lipase 151 U/L (23-300); Sodium 135 mmol/L (137-145)
[2023-02-10 14:57] LABS: Magnesium 1.8 mg/dL (1.6-2.3)
--- NOTE | 2023-02-10 15:06 | PC.NURSE ---
recent workup at [facility], low potassium and magnesium. Patient states she has been having significant diarrhea. Reports near syncope. Denies chest pain
--- NOTE | 2023-02-10 15:28 | ED_ITS ---
HPI - Dizziness General Chief Complaint: Dizziness Stated Complaint: dizzy- feels like might pass out Time Seen by Provider: 02/10/23 15:27 Source: patient Mode of arrival: Ambulatory Limitations: no limitations History of Present Illness HPI Narrative: 42-year-old female with history of hypertension, diabetes, anxiety with complaint of dizziness and felt like she was going to pass out earlier today. Patient states she was sick last week between the and . She states she was having frequent diarrhea and food was moving almost immediately through her. She went to [facility] last Friday states she had a CT scan and has been improving thought she was on the upswing. She states she has not been having any fevers currently no chest pain or shortness of breath, no abdominal back or flank pain. She was having some mild abdominal pain with bowel movements before but has been improving. Patient states loose stools but no longer diarrhea like and frequency has decreased significantly. She denies any other cold cough congestion type symptoms. No urinary symptoms such as dysuria urgency or frequency. She did not have any black or bloody stools. Today she would gotten up and was walking and felt very dizzy like she might pass out. She did not have an actual syncopal episode. Denies any swelling extremities. Patient takes metoprolol, Paxil and semaglutide. Patient states she decreased her semaglutide in the last week because of her recent illness. She is a history of appendectomy. Allergic to sulfa. No tobacco, alcohol or illicit. Patient received 1 L of fluids here in the department and has ambulated to the bathroom without issue and is feeling improved. Related Data Home Medications Medication Instructions Recorded Confirmed paroxetine HCl 40 mg tablet (Paxil) 40 mg PO QDAY ##0 10/04/15 08/08/17 clonazepam 1 mg tablet (Klonopin) 1 mg PO PRN PRN Agitation ##0 04/21/17 08/08/17 Previous Rx's Medication Instructions Recorded meclizine 25 mg tablet 25 mg PO BID PRN #20 tabs 04/21/17 prednisone 20 mg tablet 20 mg PO DAILY #5 tabs 02/09/19 doxycycline hyclate 100 mg capsule 100 mg PO BID #14 caps 02/23/19 Allergies Allergy/AdvReac Type Severity Reaction Status Date / Time Sulfa (Sulfonamide Allergy Intermediate Verified 02/09/19 08:16 Antibiotics) [SULFA (SULFONAMIDE ANTIBIOTICS)] amoxicillin [AMOXICILLIN] Allergy Mild Verified 02/09/19 08:16 Review of Systems Review of Systems ROS Unobtainable: All systems reviewed & are unremarkable except as noted in HPI and below Patient History Medical History Anxiety Surgical History History of repair of anterior cruciate ligament of right knee Social History Smoking Status: Never smoker Smoking Status: Never smoker alcohol intake frequency: holidays/special occasions only Substance Use Type: does not use Exam Narrative Exam Narrative: GENERAL: Alert and oriented x three, female in mild distress. HEENT: Head normocephalic, atraumatic, EOMI, pupils reactive, face symmetric, moist mucous membranes NECK: Supple, full range of motion CARDIOVASCULAR: Regular rate and rhythm without murmurs, rubs or gallops. RESPIRATORY: Breath sounds equal bilaterally, no wheezes rales or rhonchi. ABDOMEN: Soft, nontender. Nondistended. Normoactive bowel sounds all 4 quadrants. No guarding or rebound, rigidity, no mass : No CVA tenderness EXTREMITIES: Normal range of motion, no clubbing or edema. Neurovascularly intact NEUROLOGICAL: Cranial nerves II through XII grossly intact. Moving all extremities SKIN: Warm, dry, no petechiae, no rashes or lesions. Initial Vital Signs Initial Vital Signs: Vital Signs Temperature 99.8 F H 02/10/23 12:08 Pulse Rate 84 02/10/23 12:08 Respiratory Rate 24 02/10/23 12:08 Blood Pressure 126/89 02/10/23 12:08 Pulse Oximetry 99 02/10/23 12:08 Oxygen Delivery Method Room Air 02/10/23 12:08 Course Orders Ordered: Discontinued Medications Sodium Chloride (Normal Saline 0.9%) 1,000 mls @ 1,000 mls/hr IV BOLUS ONE Stop: 02/10/23 15:09 Last Infusion: 02/10/23 15:42 Dose: Infused Documented By: Admin: 02/10/23 14:33 Dose: 1,000 mls/hr Documented By: LUIS E Ondansetron HCl (Ondansetron 4 Mg Odt) 4 mg PO NOW PRN PRN Reason: Nausea And Vomiting Ondansetron HCl (Ondansetron 4 Mg/2 Ml Inj) 4 mg IV NOW PRN PRN Reason: Nausea And Vomiting Vital Signs Vital signs: Vital Signs - 8 hr 02/10/23 12:08 02/10/23 12:21 02/10/23 12:21 Temperature 99.8 F H Pulse Rate 84 87 Respiratory Rate 24 Blood Pressure 126/89 123/81 Pulse Oximetry 99 98 Oxygen Delivery Method Room Air 02/10/23 12:30 02/10/23 12:30 02/10/23 13:00 Temperature Pulse Rate 81 82 Respiratory Rate 15 20 Blood Pressure 127/86 Pulse Oximetry 100 99 Oxygen Delivery Method 02/10/23 13:00 02/10/23 13:30 02/10/23 13:30 Temperature Pulse Rate 82 Respiratory Rate 18 Blood Pressure 123/78 118/77 Pulse Oximetry 100 Oxygen Delivery Method 02/10/23 14:00 02/10/23 14:00 02/10/23 15:45 Temperature Pulse Rate 78 77 Respiratory Rate 19 12 Blood Pressure 118/75 122/78 Pulse Oximetry 99 100 Oxygen Delivery Method Room Air Room Air MDM - Dizziness Lab Data 02/10/23 14:26 02/10/23 14:26 Labs: Lab Results 02/10/23 Range/Units 14:26 WBC 8.2 (4.5-11.0) X10^3/uL RBC 4.28 (4.0-5.2) X10^6/uL Hgb 13.4 (12.0-16.0) g/dL Hct 38.2 (36-46) % MCV 89.3 (80-100) fL MCH 31.2 (26-34) PG MCHC 35.0 (30-36) % RDW 13.9 (11.6-14.8) % Plt Count 277 (150-400) X10^3/uL Neut % (Auto) 72.2 (50-75) % Lymph % (Auto) 19.0 L (25-40) % [place] % (Auto) 5.7 (3-14) % Eos % (Auto) 2.3 (2-4) % Baso % (Auto) 0.8 (0-2) % Neut # (Auto) 5900 (1951-9140) /uL Lymph # (Auto) 1600 (5264-0759) /uL [place] # (Auto) 500 (0-900) /uL Eos # (Auto) 200 (0-450) /uL Baso # (Auto) 100 (0-100) /uL Sodium 135 L (137-145) mmol/L Potassium 4.0 (3.4-5.1) mmol/L Chloride 105 (98-107) mmol/L Carbon Dioxide 26 (22-32) mmol/L BUN 10 (7-17) mg/dL Creatinine 0.60 (0.52-1.04) mg/dL Estimated GFR > 60 (>60) mL/min BUN/Creatinine Ratio 16.7 (6-22) Glucose 91 (70-100) mg/dL Calcium 9.3 (8.4-10.2) mg/dL Magnesium 1.8 (1.6-2.3) mg/dL Total Bilirubin 0.4 (0.2-1.3) mg/dL AST 26 (14-36) IU/L ALT 26 (<35) IU/L Alkaline Phosphatase 77 (38-126) U/L Total Protein 7.0 (6.3-8.2) g/dL Albumin 4.1 (3.5-5.0) g/dL Globulin 2.9 (1.7-4.1) g/dL Albumin/Globulin Ratio 1.4 (1.0-2.8) Lipase 151 (23-300) U/L Point of Care Testing Test Results Negative Glucose POC 87 Urine Dip Bedside Urine Glucose Negative Bedside Urine Bilirubin - Negative Bedside Urine Ketone - Negative Urine Specific Mar[place] 1.015 Bedside Urine Occult Blood - Negative Bedside Urine pH 6.0 Bedside Urine Protein - Negative Bedside Urine Urobilinogen - Negative Bedside Urine Nitrite - Negative Bedside Urine Leukocytes - Negative Esterase MDM Narrative Medical decision making narrative: 39-year-old female with recent diarrheal illness seen at [facility] had a CT of her abdomen pelvis which was negative diarrhea is improved but today she got very dizzy. Did not have a syncopal episode but felt very lightheaded. She feels somewhat improved now she is ambulated in the department without issue. Labs including CBC show white count 8, hemoglobin of 13 platelets of 2 2 7, lymphs are slightly low no other leftward shift. Sodium 135 normal potassium renal function electrolytes, LFTs are negative. Point of care is negative, point of care urine shows a specific gravity of 1.015 without ketones or other acute change. Patient received 1 L fluids. She is feeling improved. [place] appropriate for discharge with return precautions. Discharge Plan Departure Patient Disposition: Home Clinical Impression: Dizziness Instructions: DI for Dizziness-Nonvertigo Activity Restrictions/Additional Instructions: Please follow-up as needed. Continue hydrating regularly at home. If you have recurrent symptoms increasing or new chest pain, abdominal pain, shortness of breath, recurrent episodes of dizziness or passing out, persistent vomiting, black or bloody stools or other new or concerning changes please return. Prescriptions: No Action paroxetine HCl [Paxil] 40 MG tablet 40 mg PO QDAY Qty: 0 clonazepam [Klonopin] 1 mg Tablet 1 mg PO PRN PRN (Reason: Agitation) Qty: 0 meclizine 25 MG tablet 25 mg PO BID PRNQty: 20 0RF doxycycline hyclate 100 mg capsule 100 mg PO BID Qty: 14 0RF prednisone 20 mg tablet 20 mg PO DAILY Qty: 5 0RF Referrals: Fátima Ogden DO [Primary Care Provider] - Stand Alone Forms: Patient Portal/API
== END 2023-02-10 16:17 | disposition home or self-care (01) ==
PROVIDERS: Emergency Provider Emergency Medicine; PCP Family Medicine
DX: R42 Dizziness and giddiness (principal)
CPT/HCPCS: 36415; 80053; 81003; 81025; 82962; 83690; 83735; 85025; 93005; 93010; 99283; 99284

== ENCOUNTER → 2023-04-03 12:56 | Outpatient (CLI) | payer OTHER, SELFPAY ==
--- NOTE | 2023-04-03 | DI.MG.S_ITS ---
BILATERAL DIGITAL SCREENING MAMMOGRAM 3D/2D WITH CAD: 04/03/2023 CLINICAL: Routine screening. Family history of breast cancer. Comparison is made to exams dated: 02/27/2022 mammogram, 02/22/2021 mammogram, and 12/21/2019 mammogram - [facility]. There are scattered areas of fibroglandular density in both breasts (category b / 25%-50% glandular tissue). Current study was also evaluated with a Computer Aided Detection (CAD) system. No significant masses, calcifications, or other findings are seen in either breast. There has been no significant interval change. IMPRESSION: NEGATIVE There is no mammographic evidence of malignancy. A 1 year screening mammogram is recommended. Based on the Tyrer Cuzick model (a risk assessment model) the patient's lifetime risk is 11.6% and her 10 year risk is 1.9%. According to the ACR, ACS, and NCCN guidelines, an annual breast MRI exam along with mammogram is recommended if the patient's lifetime risk is 20% or greater. This exam was interpreted at Station ID: [id number]. NOTE: For mammograms, a report in lay terms will be sent to the patient. Approximately 15% of breast malignancies will not be visualized mammographically. In the management of a palpable breast mass, a negative mammogram must not discourage biopsy of a clinically suspicious lesion. Electronically Signed By: Clovis martinez/tyrell:04/03/2023 15:58:39 letter sent: Normal Exam ACR BI-RADS Category 1: Negative 3341F
== END ==
LOC: MAMMO 12:57
PROVIDERS: PCP Family Medicine; Referring Provider Family Medicine; Visit Provider Family Medicine
DX: Z12.31 Encounter for screening mammogram for malignant neoplasm of breast (principal); Z80.3 Family history of malignant neoplasm of breast; R92.323 Mammographic fibroglandular density, bilateral breasts
CPT/HCPCS: 77063; 77067

== ENCOUNTER 2023-09-30 10:08 | Emergency (ER) | payer OTHER, SELFPAY ==
[2023-09-30] VITALS (8 sets, daily range): BP systolic 113–135; BP diastolic 77–87; PULSE 75–107; RESP 14–18; TEMP 36.6; O2SAT 94–100; BMI 32.4
--- NOTE | 2023-09-30 10:18 | DI.RAD.S_ITS ---
PROCEDURE: XR CHEST 1V INDICATIONS: chest pain TECHNIQUE: One view of the chest was acquired. COMPARISON: None. FINDINGS: Surgical changes and devices: None. Lungs and pleura: Lungs are clear. No pleural effusions or pneumothorax. Mediastinum: Mediastinal contours appear normal. Heart size is normal. Bones and chest wall: No suspicious bony lesions. Overlying soft tissues appear unremarkable. IMPRESSION: No acute cardiopulmonary abnormality is seen. Dictated by: Mio Atkins M.D. on 09/30/2023 at 10:59 Approved by: Mio Atkins M.D. on 09/30/2023 at 10:59
--- NOTE | 2023-09-30 10:38 | EKG_ITS ---
[address] [address] Test Date: 2023-09-30 Pat Name: Julisa Blanco Department: [facility] Room: Gender: Female [employer] Cal[employer]: : 1980 Requested By: Order Number: [id number] Reading MD: Crispin Garrett Measurements Intervals [place] Rate: 77 P: 13 DC: 128 QRS: 13 QRSD: 78 T: 13 QT: 384 QTc: 434 Interpretive Statements Normal sinus rhythm Cannot rule out Anterior infarct , age undetermined Electronically Signed On 09-30-2023 12:36:54 PDT by Crispin Garrett
[2023-09-30 10:44] LABS: Add Manual Diff / Slide Review NO; Basophils Absolute Auto 0 /uL (0-100); Basophils Percent Auto 0.5 % (0-2); Eosinophils Absolute Auto 100 /uL (0-450); Eosinophils Percent Auto 0.9 % (2-4); Hematocrit 37.5 % (36-46); Hemoglobin 13.2 g/dL (12.0-16.0); Lymphocytes Absolute Auto 1500 /uL (1100-4500); Mean Corpuscular HGB Conc 35.1 % (30-36); Mean Corpuscular Hemoglobin 30.5 PG (26-34); Mean Corpuscular Volume 86.9 fL (80-100); Monocytes Absolute Auto 400 /uL (0-900); Monocytes Percent Auto 4.8 % (3-14); Neutrophils Absolute Auto 5700 /uL (1500-7000); Neutrophils Percent Auto 73.8 % (50-75); Platelet Count 219 X10^3/uL (150-400); Red Blood Cell Count 4.32 X10^6/uL (4.0-5.2); Red Cell Distribution Width 14.1 % (11.6-14.8); White Blood Cell Count 7.7 X10^3/uL (4.5-11.0)
[2023-09-30 10:55] LABS: Prothrombin Time 11.1 SECONDS (9.4-12.5)
[2023-09-30 10:58] LABS: PTT Partial Thromboplastin Tim 34 SECONDS (25.1-36.5)
[2023-09-30 11:05] LABS: Alanine Aminotransferase 22 IU/L (<35); Albumin 3.9 g/dL (3.5-5.0); Albumin Globulin Ratio 1.4 (1.0-2.8); Alkaline Phosphatase 83 U/L (38-126); Aspartate Aminotransferase 36 IU/L (14-36); BUN Creatinine Ratio 18.2 (6-22); Bilirubin Total 0.4 mg/dL (0.2-1.3); Blood Urea Nitrogen 12 mg/dL (7-17); Calcium 8.5 mg/dL (8.4-10.2); Carbon Dioxide 24 mmol/L (22-32); Chloride 111 mmol/L (98-107); Creatine Kinase 56 U/L (30-135); Estimated Glomerular Filt Rate > 60 mL/min (>60); Globulin 2.8 g/dL (1.7-4.1); Glucose 117 mg/dL (70-100); HEMOLYSIS < 15 (0-50); Lipase 356 U/L (23-300); Magnesium 1.9 mg/dL (1.6-2.3); Potassium 4.3 mmol/L (3.4-5.1); Sodium 138 mmol/L (137-145); Total Protein 6.7 g/dL (6.3-8.2)
[2023-09-30 11:16] LABS: NT-proBNP (BNP-Adult 18+) 80 pg/mL (<125); Troponin I < 0.012 ng/mL (0.01-0.034)
--- NOTE | 2023-09-30 11:21 | ED.GENADULT ---
HPI - General Adult General Chief complaint: Weakness Stated complaint: lightheaded/Dizziness Time Seen by Provider: 09/30/23 11:20 Source: patient and EMS Mode of arrival: EMS Limitations: no limitations History of Present Illness HPI narrative: 43-year-old female with history of anxiety and panic attacks has a fairly recent diagnosis of POTS patient presents complaint of feeling lightheaded very tired while she was driving to work this morning. States that she pulled over felt very lightheaded, no reported syncope. She does note she increased her Mestinon from 90 mg to 120 mg this morning. She was supposed to be taking 90 mg twice daily. She would her 1st 120 mg dose this morning. She states similar event happened a week ago when she took her 1st 90 mg dose. She states she was very fatigued and tired for several days she thought it was secondary to her POTS and having a sinus infection but realizes that there may have been a correlation to the dosage change. She states she is feeling much improved now. No fevers or chills, no chest pain or shortness of breath she would some nausea but no vomiting. She states she is chronic issues with bowel movements but no new changes. No black or bloody stools. No issues with urination. No new swelling extremities. Patient states had positive tilt-table test with her neurologist several weeks ago. Patient is on Mestinon with her recent changes, semaglutide, naltrexone for weight loss, Paxil for anxiety, Klonopin for anxiety as well as well as Zyrtec and take salt capsules although she states not as much as she has been prescribed. Has had prior appendectomy and ACL repair. States allergic to sulfa. No tobacco, alcohol or recreational drugs. No tobacco, alcohol or recreational drugs. Dr. Leo is her primary care provider. She follows with Neurology for her POTS Related Data Home Medications Medication Instructions Recorded Confirmed paroxetine HCl 40 mg tablet (Paxil) 40 mg PO QDAY ##0 10/04/15 08/08/17 clonazepam 1 mg tablet (Klonopin) 1 mg PO PRN PRN Agitation ##0 04/21/17 08/08/17 Previous Rx's Medication Instructions Recorded meclizine 25 mg tablet 25 mg PO BID PRN #20 tabs 04/21/17 prednisone 20 mg tablet 20 mg PO DAILY #5 tabs 12/10/19 doxycycline hyclate 100 mg capsule 100 mg PO BID #14 caps 02/23/19 Allergies Allergy/AdvReac Type Severity Reaction Status Date / Time Sulfa (Sulfonamide Allergy Intermediate Verified 09/30/23 10:22 Antibiotics) [SULFA (SULFONAMIDE ANTIBIOTICS)] amoxicillin [AMOXICILLIN] Allergy Mild Verified 09/30/23 10:22 Review of Systems Review of Systems ROS Unobtainable: All systems reviewed & are unremarkable except as noted in HPI and below Patient History Medical History (Updated 09/30/23 @ 12:19 by Jade Sood DO) Anxiety Surgical History History of repair of anterior cruciate ligament of right knee Social History Smoking Status: Never smoker Smoking Status: Never smoker alcohol intake frequency: holidays/special occasions only Substance Use Type: does not use Exam Narrative Exam Narrative: GEN: well nourished, well appearing female, alert and oriented x 3, patient appears to be in mild distress. HEENT: Atraumatic, pupils are equal round reactive to light, extraocular movements are intact, nares are clear, there is no conjunctival pallor. Throat is clear without any exudates, erythema, tonsillar enlargement or uvular deviation HEART: Regular rate and rhythm without murmur, clicks, rubs. LUNGS:Lungs clear to auscultation, no wheezes, rales, crackles, chest moves symmetrically ABD:bowel sounds normal, soft, non-tender, no guarding, rebound, rigidity, no masses noted, no hepatosplenomegaly :No CVA tenderness MSCL: Non-tender, no muscle atrophy, muscles strength 5/5 upper and lower extremities, full range of motion, normal gait NEURO:CN 2-12 intact, sensation normal Initial Vital Signs Initial Vital Signs: Vital Signs Temperature 97.8 F 09/30/23 10:16 Pulse Rate 85 09/30/23 10:16 Respiratory Rate 16 09/30/23 10:16 Blood Pressure 135/87 09/30/23 10:16 Pulse Oximetry 99 09/30/23 10:16 Oxygen Delivery Method Room Air 09/30/23 10:16 Course Orders Ordered: ED Orders 09/30/23 10:18 XR chest 1V Stat EKG-12 Lead Stat 09/30/23 10:34 Complete Blood Count AUTO DIFF Stat Comprehensive Metabolic Panel Stat Lipase Stat Magnesium Stat NT-proBNP (BNP-Adult 18+) Stat PTT Partial Thromboplastin Tu Stat Prothrombin Time INR Stat Troponin & CK Cardiac Panel Stat Discontinued Medications Aspirin (Aspirin 81 Mg Chew Tab) 324 mg PO NOW ONE Stop: 09/30/23 10:18 Last Admin: 09/30/23 10:24 Dose: Not Given Documented By: Sodium Chloride (Normal Saline 0.9%) 1,000 mls @ 1,000 mls/hr IV BOLUS ONE Stop: 09/30/23 12:24 Last Infusion: 09/30/23 12:53 Dose: Infused Documented By: Admin: 09/30/23 11:44 Dose: 1,000 mls/hr Documented By: NILO Vital Signs Vital signs: Vital Signs - 8 hr 09/30/23 10:30 09/30/23 10:34 09/30/23 10:34 Pulse Rate 107 H 82 Respiratory Rate 18 15 Blood Pressure 125/77 Pulse Oximetry 99 Oxygen Delivery Method 09/30/23 11:30 09/30/23 11:30 09/30/23 12:00 Pulse Rate 77 Respiratory Rate 15 Blood Pressure 124/79 113/77 Pulse Oximetry 98 Oxygen Delivery Method Room Air 09/30/23 12:00 09/30/23 12:30 09/30/23 12:30 Pulse Rate 78 75 Respiratory Rate 15 14 Blood Pressure 115/80 Pulse Oximetry 100 97 Oxygen Delivery Method Medical Decision Making Lab Data 09/30/23 10:34 09/30/23 10:34 Labs: Lab Results 09/30/23 Range/Units 10:34 WBC 7.7 (4.5-11.0) X10^3/uL RBC 4.32 (4.0-5.2) X10^6/uL Hgb 13.2 (12.0-16.0) g/dL Hct 37.5 (36-46) % MCV 86.9 (80-100) fL MCH 30.5 (26-34) PG MCHC 35.1 (30-36) % RDW 14.1 (11.6-14.8) % Plt Count 219 (150-400) X10^3/uL Neut % (Auto) 73.8 (50-75) % Lymph % (Auto) 20.0 L (25-40) % [place] % (Auto) 4.8 (3-14) % Eos % (Auto) 0.9 L (2-4) % Baso % (Auto) 0.5 (0-2) % Neut # (Auto) 5700 (8863-2692) /uL Lymph # (Auto) 1500 (6054-7623) /uL [place] # (Auto) 400 (0-900) /uL Eos # (Auto) 100 (0-450) /uL Baso # (Auto) 0 (0-100) /uL PT 11.1 (9.4-12.5) SECONDS INR 1.0 (0.9-1.3) APTT 34 (25.1-36.5) SECONDS Sodium 138 (137-145) mmol/L Potassium 4.3 (3.4-5.1) mmol/L Chloride 111 H (98-107) mmol/L Carbon Dioxide 24 (22-32) mmol/L BUN 12 (7-17) mg/dL Creatinine 0.66 (0.52-1.04) mg/dL Estimated GFR > 60 (>60) mL/min BUN/Creatinine Ratio 18.2 (6-22) Glucose 117 H (70-100) mg/dL Calcium 8.5 (8.4-10.2) mg/dL Magnesium 1.9 (1.6-2.3) mg/dL Total Bilirubin 0.4 (0.2-1.3) mg/dL AST 36 (14-36) IU/L ALT 22 (<35) IU/L Alkaline Phosphatase 83 (38-126) U/L Total Creatine Kinase 56 (30-135) U/L Troponin I < 0.012 (0.01-0.034) ng/mL NT-Pro-B Natriuret Pep 80 (<125) pg/mL Total Protein 6.7 (6.3-8.2) g/dL Albumin 3.9 (3.5-5.0) g/dL Globulin 2.8 (1.7-4.1) g/dL Albumin/Globulin Ratio 1.4 (1.0-2.8) Lipase 356 H (23-300) U/L Imaging Data Chest x-ray: Radiologist's Impression: Close Chest X-Ray (Signed) Mio Atkins - 09/30/23 Mammogram Screening (Signed) Clovis Garcia - 04/03/23 Mammogram Screening (Signed) Bautista Aguilera - 02/27/22 Mammogram Screening (Signed) Bautista Aguilera - 02/22/21 MRI Orbit/Face/Neck/IAC (Signed) Bautista Aguilera - 11/22/20 Mammogram, Additional Views (Signed) [place] - 01/14/20 Breast Ultrasound (Signed) [place]ano[place]e derasah - 01/14/20 Mammogram Screening (Signed) Dell Herbert - 12/21/19 Vascular Ultrasound (Signed) Emil Morfin - 06/05/18 Launch?[address] [address] XRay Report Signed Patient: Julisa Blacno MR#: [id number] : 1980 Acct:[id number] Age/Sex: 43 / F Date of Service: 09/30/23 Loc: ED Accession Number: [id number] Procedure: XR chest 1V Ordering Provider: Jade Sood D.O. PROCEDURE: XR CHEST 1V INDICATIONS: chest pain TECHNIQUE: One view of the chest was acquired. COMPARISON: None. FINDINGS: Surgical changes and devices: None. Lungs and pleura: Lungs are clear. No pleural effusions or pneumothorax. Mediastinum: Mediastinal contours appear normal. Heart size is normal. Bones and chest wall: No suspicious bony lesions. Overlying soft tissues appear unremarkable. IMPRESSION: No acute cardiopulmonary abnormality is seen. Dictated by: Mio Atkins M.D. on 09/30/2023 at 10:59 Approved by: Mio Atkins M.D. on 09/30/2023 at 10:59 ECG Data Attestation: I personally reviewed and interpreted this ECG as follows: Prior ECG tracings: available for review Interpretation: Sinus rhythm rate of 77 TN 128 QRS is 78 QTC 434, no acute ST elevation or depression noted. Patient has prior from 02/10/23 with no acute changes. MDM Narrative Medical decision making narrative: 43-year-old female recently diagnosed with POTS, patient is on Mestinon had her dosage increased from 90 mg b.i.d. to 120 mg. [place] did lightheaded and overwhelming fatigue but syncope. Patient not reported to be hypotensive in the field, appropriate vitals here in the department. Patient is feeling improved she has had about 500 mL NS. Patient does note that she had similar symptoms last week starting when she increased her Mestinon to 90 mg twice daily. Patient's labs overall reassuring, chest x-ray is negative EKG shows no acute change. Labs show white count of 7, hemoglobin of 13 platelets of 219, coags are negative sodium is 138 potassium 4.3 chloride 111, CO2 24 BUN 12 creatinine 0.66, glucose of 117, LFTs are negative Mag 1.9, CK is 56 troponins less than 0.012 with a BNP of 80, lipase is 356. Chest x-ray is negative for acute change. EKG shows sinus rhythm appears similar to prior EKG from 02/10/2023 Patient is felt appropriate for discharge, no acute changes workup today. Patient's vitals are overall appropriate. Discussed going back down to 90 mg as she was feeling very well over the weekend, continue to monitor and can adjust as needed. She states her neurologist is kind of given her flexibility and how to dose her medication asked that she call to follow up with them either over the or in person. Discharge Plan Departure Patient Disposition: Home Clinical Impression: Dizziness Activity Restrictions/Additional Instructions: Touch base with your neurologist, your meds on dose adjustment maybe part of the reason you are feeling the way you are today. Return to 90 mg twice daily for now and talk with your physician about when to adjust your medications. Please return for new or worsening symptoms, passing out, increasing or worsening dizziness, lightheadedness, severe headaches, new chest pain or shortness of breath, persistent vomiting, new swelling of your extremities or other new or concerning changes. Prescriptions: No Action paroxetine HCl [Paxil] 40 MG tablet 40 mg PO QDAY Qty: 0 clonazepam [Klonopin] 1 mg Tablet 1 mg PO PRN PRN (Reason: Agitation) Qty: 0 meclizine 25 MG tablet 25 mg PO BID PRNQty: 20 0RF doxycycline hyclate 100 mg capsule 100 mg PO BID Qty: 14 0RF prednisone 20 mg tablet 20 mg PO DAILY Qty: 5 0RF Referrals: Fátima Ogden DO [Primary Care Provider] - Stand Alone Forms: Patient Portal/API
[2023-09-30] MEDS: SODIUM CHLORIDE 0.9% 1,000 ML 1000 ML IV (11:44)
== END 2023-09-30 13:02 | disposition home or self-care (01) ==
PROVIDERS: Emergency Provider Emergency Medicine; PCP Family Medicine
DX: R42 Dizziness and giddiness (principal); R07.9 Chest pain, unspecified
CPT/HCPCS: 36415; 71045; 80053; 82550; 83690; 83735; 83880; 84484; 85025; 85610; 85730; 93005; 96360; 99284

== ENCOUNTER 2024-03-27 00:57 | Emergency (ER) | payer OTHER, SELFPAY ==
[2024-03-27] VITALS (8 sets, daily range): BP systolic 128–156; BP diastolic 77–95; PULSE 70–85; RESP 18; TEMP 36.9; O2SAT 97–98; BMI 31.9
--- NOTE | 2024-03-27 01:19 | ED.ABDPAIN ---
HPI - Abdominal Pain General Chief Complaint: Abdominal Pain Stated Complaint: Upper right quadrant pain Time Seen by Provider: 03/27/24 01:17 Source: patient Mode of arrival: Ambulatory History of Present Illness HPI narrative: 43-year-old female with no known prior gallbladder problems, complains of right upper quadrant abdominal pain since 3:00 p.m. yesterday, constant, with some nausea, no diarrhea, no black or red stools, no injury trauma new activities, no fevers or chills, no cough or shortness of breath, no dysuria or frequency of urination, no flank pain. Related Data Home Medications Medication Instructions Recorded Confirmed paroxetine HCl 40 mg tablet (Paxil) 40 mg PO QDAY ##0 10/04/15 08/08/17 clonazepam 1 mg tablet (Klonopin) 1 mg PO PRN PRN Agitation ##0 04/21/17 08/08/17 Previous Rx's Medication Instructions Recorded meclizine 25 mg tablet 25 mg PO BID PRN #20 tabs 04/21/17 prednisone 20 mg tablet 20 mg PO DAILY #5 tabs 02/09/19 doxycycline hyclate 100 mg capsule 100 mg PO BID #14 caps 02/23/19 Allergies Allergy/AdvReac Type Severity Reaction Status Date / Time Sulfa (Sulfonamide Allergy Intermediate Verified 09/30/23 10:22 Antibiotics) [SULFA (SULFONAMIDE ANTIBIOTICS)] amoxicillin [AMOXICILLIN] Allergy Mild Verified 09/30/23 10:22 Patient History Medical History (Updated 03/27/24 @ 04:03 by Avni Pastor MD) Anxiety Surgical History History of repair of anterior cruciate ligament of right knee Social History Smoking Status: Never smoker Smoking Status: Never smoker alcohol intake frequency: holidays/special occasions only Exam Narrative Exam Narrative: GENERAL: Well-developed patient, in mild distress. HEAD: Atraumatic. Normocephalic. EYES: Pupils equal round and reactive. Extraocular motions intact. No scleral icterus. No injection or drainage. ENT: Nose without bleeding, purulent drainage. Throat without erythema, tonsillar hypertrophy or exudate. Airway patent. NECK: Trachea midline. Non tender CARDIOVASCULAR: Regular rate and rhythm without murmurs, gallops, or rubs. RESPIRATORY: Clear to auscultation. Breath sounds equal bilaterally. No wheezes, rales, or rhonchi. GASTROINTESTINAL: Abdomen soft, non-tender, nondistended. EXTREMITIES: No edema or joint tenderness. BACK: Nontender without deformity or crepitance. No flank tenderness. NEURO: AOx3. Motor functions grossly nonfocal SKIN: No rash or erythema of visible areas Initial Vital Signs Initial Vital Signs: Vital Signs Temperature 98.5 F 03/27/24 01:07 Pulse Rate 85 03/27/24 01:07 Respiratory Rate 18 03/27/24 01:07 Blood Pressure 156/95 H 03/27/24 01:07 Pulse Oximetry 98 03/27/24 01:07 Oxygen Delivery Method Room Air 03/27/24 01:07 Course Orders Ordered: ED Orders 03/27/24 01:10 Complete Blood Count AUTO DIFF Stat Comprehensive Metabolic Panel Stat Lipase Stat 03/27/24 01:11 EKG-12 Lead Stat 03/27/24 01:44 US abdomen limited Stat 03/27/24 04:05 Ictotest Urine Stat 03/27/24 04:07 Urinalysis and Microscopic Stat Discontinued Medications Hydromorphone HCl (Hydromorphone 0.5 Mg Inj) 0.5 mg IV NOW ONE Stop: 03/27/24 01:40 Last Admin: 03/27/24 02:15 Dose: Not Given Ondansetron HCl (Ondansetron 4 Mg/2 Ml Inj) 4 mg IV NOW PRN PRN Reason: Nausea And Vomiting Ondansetron HCl (Ondansetron 4 Mg Odt) 4 mg PO NOW PRN PRN Reason: Nausea And Vomiting Ondansetron HCl (Ondansetron 4 Mg/2 Ml Inj) 4 mg IV NOW ONE Stop: 03/27/24 01:40 Last Admin: 03/27/24 02:15 Dose: Not Given Vital Signs Vital signs: Vital Signs - 8 hr 03/27/24 01:07 03/27/24 01:13 03/27/24 01:30 Temperature 98.5 F Pulse Rate 85 79 Respiratory Rate 18 Blood Pressure 156/95 H 143/90 H Pulse Oximetry 98 98 Oxygen Delivery Method Room Air 03/27/24 01:30 03/27/24 02:00 03/27/24 02:00 Temperature Pulse Rate 77 82 Respiratory Rate 18 Blood Pressure 135/87 Pulse Oximetry 98 98 Oxygen Delivery Method 03/27/24 02:30 03/27/24 02:30 03/27/24 03:00 Temperature Pulse Rate 70 80 Respiratory Rate 18 Blood Pressure 128/81 Pulse Oximetry 97 97 Oxygen Delivery Method 03/27/24 03:00 03/27/24 03:30 03/27/24 03:30 Temperature Pulse Rate 74 Respiratory Rate 18 Blood Pressure 128/91 H 141/91 H Pulse Oximetry 98 Oxygen Delivery Method 03/27/24 04:07 03/27/24 04:07 Temperature Pulse Rate 73 Respiratory Rate 18 Blood Pressure 130/77 Pulse Oximetry 98 Oxygen Delivery Method MDM - Abdominal Pain Lab Data Attestation: I reviewed the patient's lab results. Lab results narrative: White blood cell count 7400, hemoglobin 12.9, platelets adequate. Basic metabolic panel unremarkable. Liver functions and lipase normal. 03/27/24 01:10 03/27/24 01:10 Labs: Lab Results 03/27/24 03/27/24 Range/Units 01:10 04:05 WBC 7.4 (4.5-11.0) X10^3/uL RBC 4.22 (4.0-5.2) X10^6/uL Hgb 12.9 (12.0-16.0) g/dL Hct 36.9 (36-46) % MCV 87.3 (80-100) fL MCH 30.4 (26-34) PG MCHC 34.9 (30-36) % RDW 13.9 (11.6-14.8) % Plt Count 259 (150-400) X10^3/uL Neut % (Auto) 56.8 (50-75) % Lymph % (Auto) 34.1 (25-40) % [place] % (Auto) 6.4 (3-14) % Eos % (Auto) 2.1 (2-4) % Baso % (Auto) 0.6 (0-2) % Neut # (Auto) 4200 (8411-4570) /uL Lymph # (Auto) 2500 (1584-8730) /uL [place] # (Auto) 500 (0-900) /uL Eos # (Auto) 200 (0-450) /uL Baso # (Auto) 0 (0-100) /uL Sodium 139 (137-145) mmol/L Potassium 3.5 (3.4-5.1) mmol/L Chloride 110 H (98-107) mmol/L Carbon Dioxide 23 (22-32) mmol/L BUN 7 (7-17) mg/dL Creatinine 0.74 (0.52-1.04) mg/dL Estimated GFR > 60 (>60) mL/min BUN/Creatinine Ratio 9.5 (6-22) Glucose 96 (70-100) mg/dL Calcium 9.3 (8.4-10.2) mg/dL Total Bilirubin 0.3 (0.2-1.3) mg/dL AST 34 (14-36) IU/L ALT 28 (<35) IU/L Alkaline Phosphatase 59 (38-126) U/L Total Protein 7.0 (6.3-8.2) g/dL Albumin 4.1 (3.5-5.0) g/dL Globulin 2.9 (1.7-4.1) g/dL Albumin/Globulin Ratio 1.4 (1.0-2.8) Lipase 242 (23-300) U/L Urine Color Yellow Urine Appearance Clear Urine pH 6.0 (4.5-8.0) Ur Specific [place] 1.025 (1.000-1.035) Urine Protein Negative (Negative) Urine Glucose (UA) Negative (Negative) g/dL Urine Ketones 2+ H (NEGATIVE) Urine Occult Blood Trace-intact (Negative) Urine Nitrate Negative (Negative) Urine Bilirubin 1+ H (NEGATIVE) Ur Bilirubin Confirm Negative (Negative) Urine Urobilinogen 0.2 (0.2) E.U./dL Ur Leukocyte Esterase Negative (NEGATIVE) Urine RBC None seen (0-5/HPF) Urine WBC None seen (0-5/HPF) Ur Squamous Epith Cells 0-1 /hpf (0-5/HPF) Urine Bacteria None seen (None) Ur Culture Indicated? Cult not indicated Vol Urine Centrifuged 10ml (spun) MDM Narrative Medical decision making narrative: 43-year-old female with right upper quadrant pain for the last 12 hours, nonradiating, afebrile, sirs screen negative, some tenderness to right upper quadrant, no guarding or rebound tenderness. White blood cell count normal. Liver functions and lipase normal. Ultrasound right upper quadrant abdomen imaging ordered. Keep NPO for now. IV Dilaudid/Zofran. Ultrasound shows presence of gallbladder stone, freely mobile, no thickening or pericholecystic fluid. Sono tech verbal report, await Radiology report. Ultrasound right upper quadrant abdomen. Impressions: ?Cholelithiasis and gallbladder wall thickening without pericholecystic fluid or sonographic Cooper's sign. Patient does not meet sonographic criteria for acute cholecystitis however if findings are equivocal on clinical exam consider HIDA.? See radiology report Advised follow up with General surgery for outpatient consultation possible elective cholecystectomy. Return precautions discussed, advised avoidance of fatty foods and dairy products the might stimulate gallbladder. Encouraged to drink plenty of fluids. Discharged home with family Discharge Plan Departure Patient Disposition: Home Clinical Impression: Right upper quadrant abdominal pain, Cholelithiasis Activity Restrictions/Additional Instructions: Upper abdominal pain, suspicious for gallbladder etiology. Ultrasound of the right upper quadrant of the abdomen did show presence of a couple of stones that were freely mobile, however at this time there is no thickening of the gallbladder wall or pericholecystic fluid collections to suggest an acute lead inflamed surgical gallbladder at this time. Nonetheless your gallstones maybe symptomatic, as you had symptoms that worsened after fatty food, consider general surgery consultation in clinic in follow up to see if elective cholecystectomy gallbladder removal surgery would be recommended. Try to avoid fatty foods, greasy foods, as this will stimulate the gallbladder to contract and lead to more discomfort. Take Tylenol and or Motrin as needed for discomfort control of pain symptoms. Drink plenty of fluids. Follow up with General surgery, clinic contact information provided. Return earlier to this/nearest emergency department for any change worsening symptoms or any concerns Prescriptions: No Action paroxetine HCl [Paxil] 40 MG tablet 40 mg PO QDAY Qty: 0 clonazepam [Klonopin] 1 mg Tablet 1 mg PO PRN PRN (Reason: Agitation) Qty: 0 meclizine 25 MG tablet 25 mg PO BID PRNQty: 20 0RF doxycycline hyclate 100 mg capsule 100 mg PO BID Qty: 14 0RF prednisone 20 mg tablet 20 mg PO DAILY Qty: 5 0RF Referrals: Jair Mayfield MD [Physician] - Rekha Suarez MD [Physician] - Minor Uribe MD [Physician] - Jonathan Frances MD [Physician] - Fátima Ogden DO [Primary Care Provider] - Stand Alone Forms: Patient Portal/API/Survey
[2024-03-27 01:24] LABS: Add Manual Diff / Slide Review NO; Basophils Absolute Auto 0 /uL (0-100); Basophils Percent Auto 0.6 % (0-2); Eosinophils Absolute Auto 200 /uL (0-450); Eosinophils Percent Auto 2.1 % (2-4); Hematocrit 36.9 % (36-46); Hemoglobin 12.9 g/dL (12.0-16.0); Lymphocytes Absolute Auto 2500 /uL (1100-4500); Lymphocytes Percent Auto 34.1 % (25-40); Mean Corpuscular HGB Conc 34.9 % (30-36); Mean Corpuscular Hemoglobin 30.4 PG (26-34); Mean Corpuscular Volume 87.3 fL (80-100); Monocytes Absolute Auto 500 /uL (0-900); Monocytes Percent Auto 6.4 % (3-14); Neutrophils Absolute Auto 4200 /uL (1500-7000); Neutrophils Percent Auto 56.8 % (50-75); Platelet Count 259 X10^3/uL (150-400); Red Blood Cell Count 4.22 X10^6/uL (4.0-5.2); Red Cell Distribution Width 13.9 % (11.6-14.8); White Blood Cell Count 7.4 X10^3/uL (4.5-11.0)
[2024-03-27 01:36] LABS: Alanine Aminotransferase 28 IU/L (<35); Albumin 4.1 g/dL (3.5-5.0); Albumin Globulin Ratio 1.4 (1.0-2.8); Alkaline Phosphatase 59 U/L (38-126); Aspartate Aminotransferase 34 IU/L (14-36); BUN Creatinine Ratio 9.5 (6-22); Bilirubin Total 0.3 mg/dL (0.2-1.3); Blood Urea Nitrogen 7 mg/dL (7-17); Calcium 9.3 mg/dL (8.4-10.2); Carbon Dioxide 23 mmol/L (22-32); Chloride 110 mmol/L (98-107); Estimated Glomerular Filt Rate > 60 mL/min (>60); Globulin 2.9 g/dL (1.7-4.1); Glucose 96 mg/dL (70-100); HEMOLYSIS < 15 (0-50); Lipase 242 U/L (23-300); Potassium 3.5 mmol/L (3.4-5.1); Sodium 139 mmol/L (137-145)
--- NOTE | 2024-03-27 01:44 | DI.US.S_ITS ---
PROCEDURE: US ABDOMEN LIMITED INDICATIONS: RUQ abd pain/tend TECHNIQUE: Real-time scanning was performed of the abdominal and retroperitoneal organs, with image documentation. COMPARISON: None. FINDINGS: Liver: Liver is normal in size and homogeneous in echotexture. Gallbladder: Mobile gallstones are present. No wall thickening. No pericholecystic edema. Negative sonographic Cooper's sign. Biliary ducts: Intrahepatic bile ducts are non-dilated. Extrahepatic bile duct caliber measures 4.2 mm. Normal is 6-7 mm or less in diameter, or 10 mm or less post-cholecystectomy. Pancreas: Not seen secondary to overlying bowel gas. Miscellaneous: No free abdominal fluid. IMPRESSION: Cholelithiasis without sonographic evidence of acute cholecystitis. Findings are concordant with preliminary interpretation provided by [facility]. Dictated by: Franko Freeman M.D. on 03/27/2024 at 7:30 Approved by: Franko Freeman M.D. on 03/27/2024 at 7:31
--- NOTE | 2024-03-27 02:01 | PC.NURSE ---
pt continues to not want to take the pain meds discussed with pt, the ultrasound procedure and pt stated she would take the medication just prior to the US
--- NOTE | 2024-03-27 02:08 | PC.NURSE ---
US here, pt decided to wait on pain meds at this time
[2024-03-27 04:25] LABS: Appearance Urine UA CLEAR; Bilirubin Urine UA 1+ (NEGATIVE); Color Urine UA YELLOW; Glucose Urine UA NEGATIVE (Negative); Ketones Urine UA 2+ (NEGATIVE); Leukocyte Esterase Urine UA NEGATIVE (NEGATIVE); Nitrite Urine UA NEGATIVE (Negative); Occult Blood Urine UA TRACE-INTACT (Negative); Protein Urine UA NEGATIVE (Negative); Specific Gravity Urine UA 1.025 (1.000-1.035); Urobilinogen Urine UA 0.2 E.U./dL (0.2)
[2024-03-27 04:42] LABS: Bacteria Urine None Seen; Culture Indicated Urine Cult Not Indicated; Ictotest Urine Negative (Negative); RBC Urine None Seen (0-5/HPF); Squamous Epithelial Cell Urine 0-1 /HPF (0-5/HPF); Urine Volume 10mL (spun); WBC Urine None Seen (0-5/HPF)
== END 2024-03-27 04:16 | disposition home or self-care (01) ==
PROVIDERS: Emergency Provider Emergency Medicine; Family Provider Family Medicine; PCP Family Medicine
DX: K80.20 Calculus of gallbladder without cholecystitis without obstruction (principal); R10.11 Right upper quadrant pain; R11.0 Nausea; Z88.2 Allergy status to sulfonamides
CPT/HCPCS: 36415; 76705; 80053; 81001; 83690; 85025; 99283; 99284

== ENCOUNTER → 2024-05-31 15:42 | Outpatient (CLI) | payer OTHER, SELFPAY ==
--- NOTE | 2024-05-31 15:43 | DI.MG.S_ITS ---
MM screening mammo BI: 05/31/2024. BI-RADS: 1 CLINICAL: 43-year old female for bilateral screening mammogram. Tyrer-Cuzick lifetime risk of 6.8%. No personal or first-degree family history of breast cancer. PRIOR EXAMS 04/03/2023, 02/27/2022, 02/22/2021, 01/14/2020, 12/21/2019. MAMMOGRAPHY TECHNIQUE: 2D and 3D (tomosynthesis) digital mammographic views obtained, with additional images as needed for full coverage. Current study was also evaluated with a Computer Aided Detection (CAD) system. DENSITY B. There are scattered areas of fibroglandular density. MAMMOGRAPHY FINDINGS Bilateral: No suspicious mass, asymmetry, microcalcification, or other abnormality seen. No significant change from comparison. IMPRESSION: * No evidence of malignancy. RECOMMENDATIONS Bilateral * Annual screening mammography. OVERALL ASSESSMENT CATEGORY BI-RADS-1: Negative. The [employer] recommends annual screening mammography beginning at age 40 for women with average risk of breast cancer. ELECTRONICALLY SIGNED: Ayla Zheng M.D. on 06/01/2024 at 08:52:49 AM PT Interpreting Station ID: [id number]
== END ==
PROVIDERS: Family Provider Family Medicine; PCP Family Medicine; Referring Provider Family Medicine; Visit Provider Family Medicine
DX: Z12.31 Encounter for screening mammogram for malignant neoplasm of breast (principal)
CPT/HCPCS: 77063; 77067